=== PATIENT | male | born 1985 | race Caucasian/White ===

== ENCOUNTER 2022-01-28 20:01 | Emergency (ER) | payer SELFPAY ==
[~2022-01-28] VITALS: Ht 165.1 cm; Wt 122.0 kg
[2022-01-29] MEDS: ACETAMINOPHEN 500MG TABLET PO ONE
[2022-01-29] MEDS ORDERED: ACET-2708 MT (02:16)
[2022-01-29 02:40] VITALS: BP 114/78
== END 2022-01-29 02:41 | disposition home or self-care (01) ==
LOC: ER 20:01
DX: S09.8XXA Other specified injuries of head, initial encounter (principal); S10.83XA Contusion of other specified part of neck, initial encounter; Y08.89XA Assault by other specified means, initial encounter; Y93.89 Activity, other specified; Y92.89 Other specified places as the place of occurrence of the external cause; Y99.8 Other external cause status
CPT/HCPCS: 99284